=== PATIENT | female | born 1955 | race Caucasian/White ===

== ENCOUNTER 2017-11-15 14:35 | Day surgery (SDC) | payer BC ==
[2017-11-15] MEDS ORDERED: MIDAZOLAM 1 MG/ML 2 ML INJ (16:55)
[2017-11-15] MEDS ORDERED: PROPOFOL 20 ML (16:55)
[2017-11-15] MEDS ORDERED: FENTAnyl 50 MCG/ML VIAL ×2 (16:55→17:28)
[2017-11-15] MEDS ORDERED: CEFAZOLIN 1 GM INJ (16:57)
[2017-11-15] MEDS: LIDOCAINE 1% (MPF) 30 ML INJ ×2 (16:58→17:35)
[2017-11-15] MEDS: ROPIVACAINE 0.5 % 30 ML VIAL (16:58)
[2017-11-15] MEDS ORDERED: morphine 2 MG INJ IV (17:00)
[2017-11-15] MEDS ORDERED: METOCLOPRAMIDE 10 MG INJ IV (17:00)
[2017-11-15] MEDS ORDERED: DIPHENHYDRAMINE 50 MG INJ IV (17:00)
[2017-11-15] MEDS ORDERED: PROCHLORPERAZINE 10 MG INJ IV (17:00)
[2017-11-15] MEDS ORDERED: IBUPROFEN 600 MG TAB PO (17:00)
[2017-11-15] MEDS ORDERED: OXYCODONE/ACETAMINOPHEN (5/325) TAB PO ×3 (17:00)
[2017-11-15] MEDS ORDERED: FENTAnyl 50 MCG/ML VIAL IV ×3 (17:00)
[2017-11-15] MEDS ORDERED: MEPERIDINE 25 MG INJ IV (17:00)
[2017-11-15] MEDS ORDERED: MIDAZOLAM 1 MG/ML 2 ML INJ IV (17:00)
[2017-11-15] MEDS ORDERED: EPHEDrine SULFATE 50 MG/5 ML SYG IV (17:00)
[2017-11-15] MEDS ORDERED: HYDROCODONE/APAP (5/325) TAB PO (17:00)
[2017-11-15] MEDS ORDERED: KETOROLAC 30 MG INJ IV (17:00)
[2017-11-15] MEDS ORDERED: LABETALOL HCL 20MG INJ IV (17:00)
[2017-11-15] MEDS ORDERED: ONDANSETRON 4 MG INJ IV ×2 (17:00)
[2017-11-15] MEDS: BACITRACIN 0.9 GM OINT ×2 (17:18→17:19)
[2017-11-15] MEDS ORDERED: LACTATED RINGER'S 1,000 ML IV (18:30)
[2017-11-15] MEDS: hydrALAzine 20 MG INJ IV (18:41)
== END 2017-11-15 19:15 | disposition home or self-care (01) ==
LOC: SDS 14:35
DX: M65.331 Trigger finger, right middle finger (principal); M65.4 Radial styloid tenosynovitis [de Quervain]; M65.311 Trigger thumb, right thumb; M65.341 Trigger finger, right ring finger
CPT/HCPCS: 25000